=== PATIENT | male | born 1940 | race Caucasian/White ===

== ENCOUNTER 2018-05-30 18:35 | Observation (INO) ==
[2018-05-30 19:34] LABS: Basophils # 0.1 10*3/uL (0.0-0.2); Basophils % 2.3 % (0.0-0.8); Eosinophils # 0.1 10*3/uL (0.0-0.87); Eosinophils % 4.3 % (0.00-10.9); Hematocrit 35.8 VOL% (42.0-52.0); Immature Granulocytes % 0.3 %; Immature Granulocytes Absolute 0.01 #; Lymphocytes # 0.7 10*3/uL (1.4-4.0); Lymphocytes % 24.4 % (21.2-54.2); Mean Corpuscular HGB Conc 30.7 GM/DL (32-36); Mean Corpuscular Hemoglobin 28 PG (27-34); Mean Corpuscular Volume 90.9 FL (87-102); Mean Platelet Volume 11.4 FL (9.6-12.0); Monocytes # 0.3 10*3/uL (0.11-0.8); Monocytes % 11.2 % (1.7-12.7); Neutrophils # 1.7 10*3/uL (1.4-7.4); Neutrophils % 57.5 % (38.7-73.9); Platelet Count 71 T/CUMM (130-400); Red Blood Count 3.94 MC/CUMM (3.8-5.5); Red Cell Distribution Width 17.9 % (9.3-17.3)
[2018-05-30 20:08] LABS: Bilirubin,Total 1.2 MG/DL (0.2-1.0); Calcium 9.1 MG/DL (8.5-10.1); Osmolality,Calculated 288.3 MOS/KG (273-304); Potassium 4.7 MMOL/L (3.5-5.1); Total Protein 6.8 G/DL (6.4-8.3)
[2018-05-30 20:10] LABS: Giant Platelets Few; Platelet Estimate Decreased
[2018-05-30] MEDS ORDERED: ONDANSETRON 4 MG/2 ML VIAL IV PRN (22:21)
[2018-05-30] MEDS ORDERED: ENOXAPARIN 40 MG/0.4 ML SYRINGE SUBCUT SCH (22:30)
[2018-05-31] MEDS ORDERED: NIACIN 500 MG TABLET PO SCH (02:05)
[2018-05-31] MEDS ORDERED: SIMVASTATIN 80 MG TABLET PO SCH (02:05)
[2018-05-31 07:24] LABS: Osmolality,Calculated 285.4 MOS/KG (273-304); Potassium 4.2 MMOL/L (3.5-5.1)
[2018-05-31] MEDS ORDERED: CARVEDILOL 12.5 MG TABLET PO SCH (08:00)
[2018-05-31] MEDS ORDERED: LOSARTAN 50 MG TABLET PO SCH (09:00)
[2018-05-31] MEDS ORDERED: PANTOPRAZOLE 40 MG TABLET PO SCH (09:00)
[2018-05-31] MEDS ORDERED: FUROSEMIDE 40 MG TABLET PO SCH (09:00)
[2018-05-31] MEDS ORDERED: ESCITALOPRAM 10 MG TABLET PO SCH (09:00)
[2018-05-31] MEDS ORDERED: ASPIRIN EC 81 MG TABLET PO SCH (09:00)
[2018-05-31] MEDS ORDERED: ALLOPURINOL 300 MG TABLET PO SCH (09:00)
[2018-05-31] MEDS ORDERED: SODIUM CHLORIDE 0.9% 500 ML IV ONE (14:02)
[2018-05-31 14:28] LABS: Risk Ratio 2.16; VLDL CHOLESTEROL 12.4 MG/DL
[2018-05-31 15:51] VITALS: BP 135/71
== END 2018-05-31 18:43 | disposition home or self-care (01) ==
LOC: N.EDINP 18:35 → N.ED 18:35 → N.4E 05-31 00:12
PROVIDERS: ADMIT Internal Medicine; ATTEND Internal Medicine

== ENCOUNTER 2019-09-14 04:10 | Inpatient (IN) ==
[2019-09-14] MEDS ORDERED: SODIUM CHLORIDE 0.9% 1,000 ML IV STA (04:30)
[2019-09-14] MEDS ORDERED: ACETAMINOPHEN 500 MG TABLET PO STA (04:39)
[2019-09-14 05:12] LABS: Basophils # 0.1 10*3/uL (0.0-0.2); Basophils % 0.9 % (0.0-0.8); Eosinophils # 0.1 10*3/uL (0.0-0.87); Hematocrit 43.8 VOL% (42.0-52.0); Hemoglobin 14.2 GM/DL (14.0-18.0); Immature Granulocytes % 0.6 %; Immature Granulocytes Absolute 0.07 #; Lymphocytes # 0.9 10*3/uL (1.4-4.0); Lymphocytes % 7.7 % (21.2-54.2); Mean Corpuscular HGB Conc 32.4 GM/DL (32-36); Mean Corpuscular Volume 97.1 FL (87-102); Mean Platelet Volume 10.4 FL (9.6-12.0); Neutrophils % 78.8 % (38.7-73.9); Platelet Count 110 T/CUMM (130-400); Red Blood Count 4.51 MC/CUMM (3.8-5.5); Red Cell Distribution Width 15.5 % (9.3-17.3); White Blood Count 11.6 T/CUMM (4-12)
[2019-09-14 05:24] LABS: Alanine Aminotransferase 25 U/L (16-61); Albumin 3.6 G/DL (3.4-5.0); Alkaline Phosphatase 82 U/L (45-117); Aspartate Amino Transferase 38 U/L (0-37); Blood Urea Nitrogen 61 MG/DL (7-18); Estimated Glom Filtration Rate 23 ML/MIN; Glucose 98 MG/DL (74-106); Osmolality,Calculated 278.7 MOS/KG (273-304); Total Protein 6.9 G/DL (6.4-8.3)
[2019-09-14] MEDS ORDERED: NICOTINE 21 MG/24 HR PATCH TRANSDERM PRN (05:56)
[2019-09-14] MEDS ORDERED: DEXTROSE 50% 25 GM/50 ML VIAL IV PRN (05:56)
[2019-09-14] MEDS ORDERED: ACETAMINOPHEN 325 MG TABLET PO PRN (05:56)
[2019-09-14] MEDS ORDERED: GLUCAGON 1 MG VIAL IM PRN (05:56)
[2019-09-14] MEDS ORDERED: diphenhydrAMINE CAP 25 MG CAPSULE PO PRN (05:56)
[2019-09-14] MEDS ORDERED: DOCUSATE SODIUM 100 MG CAPSULE PO PRN (05:56)
[2019-09-14] MEDS ORDERED: ONDANSETRON 4 MG/2 ML VIAL IV PRN (05:56)
[2019-09-14] MEDS ORDERED: hydrALAZINE 20 MG/1 ML VIAL IV PRN (05:56)
[2019-09-14] MEDS ORDERED: guaiFENesin/DM ER 600-30 MG TABLET PO PRN (05:56)
[2019-09-14 06:00] LABS: Amorphous Crystals,Urine Occasional /HPF (Few); Apearance,Urine Slightly Hazy (Clear); Bacteria,Urine Occasional /HPF (Few); Bilirubin,Urine Negative (Negative); Blood, Urine Negative (Negative); Glucose,Urine (UA) Negative (Negative); Hyaline Casts,Urine 6 /LPF (0-3); Ketones,Urine Negative (Negative); Mucus,Urine Moderate /LPF (Occasional); Nitrite,Urine Negative (Negative); Protein,Urine 100 MG/DL; RBC,Urine 1 /HPF (0-4); Squamous Epithelial Cell,Urine Occasional /HPF (0-10); Urine Color Yellow (Yellow); Urine Specific Gravity 1.018 (1.001-1.035); Urine Urobilinogen < 2.0 EU/DL (0.2-1.0); WBC,Urine <1 /HPF (0-6)
[2019-09-14] MEDS ORDERED: SODIUM CHLORIDE 0.9% 1,000 ML IV SCH (06:00)
[2019-09-14] MEDS ORDERED: AZITHROMYCIN INJ 500 MG in SODIUM CHLORIDE 0.9% 250 ML IV SCH (06:00)
[2019-09-14] MEDS ORDERED: SODIUM CHLORIDE 0.9% 1,000 ML IV ONE (06:14)
[2019-09-14] MEDS: cefTRIAXone 1,000 MG in SYRINGE 1 EACH IV SCH (07:44)
[2019-09-14] MEDS ORDERED: SODIUM CHLORIDE 0.9% 100 ML IV ONE (07:46)
[2019-09-14] MEDS: AZITHROMYCIN 250 MG TABLET PO SCH (09:36)
[2019-09-14] MEDS: PANTOPRAZOLE 40 MG TABLET PO SCH (09:36)
[2019-09-14] MEDS: HEPARIN 5,000 UNIT/1 ML VIAL SUBCUT SCH ×2 (10:15→22:07)
[2019-09-14] MEDS: ZALEPLON 5 MG CAPSULE PO PRN (22:10)
[2019-09-15 06:17] LABS: Calcium 8.4 MG/DL (8.5-10.1); Osmolality,Calculated 288.8 MOS/KG (273-304)
[2019-09-15 06:21] LABS: Calcium 8.5 MG/DL (8.5-10.1); Osmolality,Calculated 293.4 MOS/KG (273-304); Total Protein 5.7 G/DL (6.4-8.3)
[2019-09-15 07:46] LABS: Basophils # 0.1 10*3/uL (0.0-0.2); Basophils % 1.7 % (0.0-0.8); Eosinophils # 0.2 10*3/uL (0.0-0.87); Hematocrit 35.9 VOL% (42.0-52.0); Immature Granulocytes % 0.5 %; Immature Granulocytes Absolute 0.02 #; Lymphocytes % 24.6 % (21.2-54.2); Mean Corpuscular HGB Conc 31.8 GM/DL (32-36); Mean Platelet Volume 9.7 FL (9.6-12.0); Monocytes % 13.7 % (1.7-12.7); Neutrophils % 55.5 % (38.7-73.9); Red Cell Distribution Width 15.9 % (9.3-17.3)
[2019-09-15 07:47] LABS: Hemoglobin 11.4 GM/DL (14.0-18.0); Platelet Count 59 T/CUMM (130-400); Red Blood Count 3.59 MC/CUMM (3.8-5.5)
[2019-09-15] MEDS: cefTRIAXone 1,000 MG in SYRINGE 1 EACH IV SCH (07:48)
[2019-09-15 08:06] LABS: Platelet Estimate Decreased
[2019-09-15 08:07] LABS: Anisocytosis 1+
[2019-09-15 08:08] LABS: Macrocytosis 1+; Poikilocytosis Slight
[2019-09-15] MEDS: PANTOPRAZOLE 40 MG TABLET PO SCH (08:37)
[2019-09-15] MEDS: HEPARIN 5,000 UNIT/1 ML VIAL SUBCUT SCH ×2 (08:37→22:12)
[2019-09-15] MEDS: AZITHROMYCIN 250 MG TABLET PO SCH (08:37)
[2019-09-15] MEDS ORDERED: FUROSEMIDE 40 MG TABLET PO SCH (11:30)
[2019-09-15] MEDS: ZALEPLON 5 MG CAPSULE PO PRN (22:18)
[2019-09-16 06:10] LABS: Basophils # 0.1 10*3/uL (0.0-0.2); Basophils % 1.5 % (0.0-0.8); Eosinophils # 0.3 10*3/uL (0.0-0.87); Eosinophils % 5.5 % (0.00-10.9); Hematocrit 38.9 VOL% (42.0-52.0); Hemoglobin 12.8 GM/DL (14.0-18.0); Immature Granulocytes % 0.4 %; Immature Granulocytes Absolute 0.02 #; Lymphocytes # 0.7 10*3/uL (1.4-4.0); Mean Corpuscular HGB Conc 32.9 GM/DL (32-36); Mean Corpuscular Volume 96.8 FL (87-102); Mean Platelet Volume 10.1 FL (9.6-12.0); Monocytes % 12.1 % (1.7-12.7); Neutrophils % 64.5 % (38.7-73.9); Red Blood Count 4.02 MC/CUMM (3.8-5.5); Red Cell Distribution Width 15.7 % (9.3-17.3); White Blood Count 4.6 T/CUMM (4-12)
[2019-09-16 06:12] LABS: Platelet Count 71 T/CUMM (130-400)
[2019-09-16 06:56] LABS: Calcium 8.7 MG/DL (8.5-10.1); Ferritin 121.1 ng/ml (26-388); Osmolality,Calculated 282.1 MOS/KG (273-304)
[2019-09-16 07:10] LABS: Hypochromasia Slight; Platelet Estimate Decreased
[2019-09-16] MEDS: AZITHROMYCIN 250 MG TABLET PO SCH (08:57)
[2019-09-16] MEDS: cefTRIAXone 1,000 MG in SYRINGE 1 EACH IV SCH (08:57)
[2019-09-16] MEDS: HEPARIN 5,000 UNIT/1 ML VIAL SUBCUT SCH ×2 (08:58→21:16)
[2019-09-16] MEDS: FUROSEMIDE 40 MG TABLET PO SCH ×2 (08:58→15:37)
[2019-09-16] MEDS: PANTOPRAZOLE 40 MG TABLET PO SCH (08:58)
[2019-09-16] MEDS ORDERED: FUROSEMIDE 20 MG/2 ML VIAL IV ONE (12:08)
[2019-09-17 06:17] LABS: Basophils # 0.1 10*3/uL (0.0-0.2); Basophils % 1.8 % (0.0-0.8); Eosinophils # 0.4 10*3/uL (0.0-0.87); Eosinophils % 11.1 % (0.00-10.9); Hematocrit 36.7 VOL% (42.0-52.0); Hemoglobin 12.1 GM/DL (14.0-18.0); Immature Granulocytes % 0.3 %; Immature Granulocytes Absolute 0.01 #; Lymphocytes % 28.8 % (21.2-54.2); Mean Corpuscular Volume 96.3 FL (87-102); Mean Platelet Volume 9.2 FL (9.6-12.0); Monocytes % 14.4 % (1.7-12.7); Neutrophils % 43.6 % (38.7-73.9); Red Blood Count 3.81 MC/CUMM (3.8-5.5); Red Cell Distribution Width 15.5 % (9.3-17.3); White Blood Count 3.3 T/CUMM (4-12)
[2019-09-17 06:28] LABS: Platelet Count 67 T/CUMM (130-400)
[2019-09-17 06:40] LABS: Eosinophils 12 % (0-10); Hypochromasia 1+; Lymphocytes 27 % (20-55); Macrocytosis 1+; Platelet Estimate Decreased; Segmented Neutrophils 45 % (50-85); Total Cells Counted 100
[2019-09-17 06:59] LABS: Calcium 8.5 MG/DL (8.5-10.1); Osmolality,Calculated 289.4 MOS/KG (273-304)
[2019-09-17] MEDS: PANTOPRAZOLE 40 MG TABLET PO SCH (08:09)
[2019-09-17] MEDS: HEPARIN 5,000 UNIT/1 ML VIAL SUBCUT SCH ×2 (08:10→20:07)
[2019-09-17] MEDS: cefTRIAXone 1,000 MG in SYRINGE 1 EACH IV SCH (08:10)
[2019-09-17] MEDS: FUROSEMIDE 40 MG TABLET PO SCH ×2 (08:10→16:32)
[2019-09-17] MEDS: AZITHROMYCIN 250 MG TABLET PO SCH (08:10)
[2019-09-18] MEDS: AZITHROMYCIN 250 MG TABLET PO SCH (08:19)
[2019-09-18] MEDS: cefTRIAXone 1,000 MG in SYRINGE 1 EACH IV SCH (08:19)
[2019-09-18] MEDS: FUROSEMIDE 40 MG TABLET PO SCH (08:19)
[2019-09-18] MEDS: HEPARIN 5,000 UNIT/1 ML VIAL SUBCUT SCH (08:19)
[2019-09-18] MEDS: PANTOPRAZOLE 40 MG TABLET PO SCH (08:19)
[2019-09-18] MEDS ORDERED: CEFUROXIME 500 MG TABLET PO SCH (09:00)
[2019-09-18 11:18] VITALS: BP 137/51
== END 2019-09-18 13:01 | disposition home or self-care (01) | DRG 871 ==
LOC: EDUNIT# → EDBD → SUATTDRO → N.ED 04:10 → SUATTDRO 05:56 → N.EDINP 05:56 → N.3E 07:53 → N.2E 09-16 01:56
PROVIDERS: ADMIT Internal Medicine; ATTEND Hospitalist

== ENCOUNTER 2020-02-17 15:19 | Inpatient (IN) ==
[2020-02-17] MEDS ORDERED: MAGNESIUM SULF RIDER 2 GM in PREMIX 1 EACH IV PRN (15:51)
[2020-02-17] MEDS ORDERED: ZALEPLON 5 MG CAPSULE PO PRN (15:51)
[2020-02-17] MEDS ORDERED: MAGNESIUM SULF RIDER 4 GM in PREMIX 1 EACH IV PRN (15:51)
[2020-02-17] MEDS ORDERED: ONDANSETRON 4 MG/2 ML VIAL IV PRN (15:51)
[2020-02-17] MEDS ORDERED: POTASSIUM CHLORIDE 20 MEQ TABLET PO PRN (15:51)
[2020-02-17] MEDS ORDERED: BISACODYL 5 MG TABLET PO PRN (15:51)
[2020-02-17] MEDS ORDERED: ACETAMINOPHEN 325 MG TABLET PO PRN (15:51)
[2020-02-17] MEDS ORDERED: ALUMINUM/MAGNES/SIMETH MAX STR 30 ML UDCUP PO PRN (15:51)
[2020-02-17] MEDS ORDERED: DOBUTamine 500 MG/250 ML PREMIX IV SCH (16:00)
[2020-02-17] MEDS ORDERED: NITROGLYCERIN SL 0.4 MG TABLET SL PRN (16:02)
[2020-02-17] MEDS: ENOXAPARIN 40 MG/0.4 ML SYRINGE SUBCUT SCH (17:42)
[2020-02-17 18:32] LABS: Basophils # 0.1 10*3/uL (0.0-0.2); Basophils % 2.5 % (0.0-0.8); Eosinophils # 0.3 10*3/uL (0.0-0.87); Eosinophils % 8.9 % (0.00-10.9); Hemoglobin 12.1 GM/DL (14.0-18.0); Immature Granulocytes % 0.3 %; Immature Granulocytes Absolute 0.01 #; Lymphocytes # 0.9 10*3/uL (1.4-4.0); Mean Corpuscular HGB Conc 32.7 GM/DL (32-36); Mean Corpuscular Volume 98.4 FL (87-102); Mean Platelet Volume 10.4 FL (9.6-12.0); Monocytes % 14.7 % (1.7-12.7); Neutrophils % 48.6 % (38.7-73.9); Platelet Count 114 T/CUMM (130-400); Red Blood Count 3.76 MC/CUMM (3.8-5.5); Red Cell Distribution Width 16.9 % (9.3-17.3); White Blood Count 3.6 T/CUMM (4-12)
[2020-02-17 18:49] LABS: Albumin 3.5 G/DL (3.4-5.0); Calcium 8.6 MG/DL (8.5-10.1); Total Protein 7.3 G/DL (6.4-8.3)
[2020-02-17 20:52] LABS: Troponin I 0.023 NG/ML (0.00-0.045)
[2020-02-17] MEDS ORDERED: NIACIN ER 500 MG TABLET PO SCH (21:00)
[2020-02-17] MEDS: carvediloL 12.5 MG TABLET PO SCH (21:26)
[2020-02-17] MEDS: FLECAINIDE 50 MG TABLET PO SCH (21:26)
[2020-02-17 22:41] LABS: Bilirubin,Urine Negative (Negative); Blood, Urine Negative (Negative); Glucose,Urine (UA) Negative (Negative); Hyaline Casts,Urine 5 /LPF (0-3); Ketones,Urine Negative (Negative); Mucus,Urine Occasional /LPF (Occasional); Nitrite,Urine Negative (Negative); Protein,Urine 30 MG/DL; RBC,Urine <1 /HPF (0-4); Urine Appearance CLEAR (Clear); Urine Color Yellow (Yellow); Urine Urobilinogen < 2.0 EU/DL (0.2-1.0); WBC,Urine <1 /HPF (0-6)
[2020-02-18 00:01] LABS: Troponin I 0.025 NG/ML (0.00-0.045)
[2020-02-18 05:36] LABS: Basophils # 0.1 10*3/uL (0.0-0.2); Basophils % 2.9 % (0.0-0.8); Eosinophils # 0.3 10*3/uL (0.0-0.87); Eosinophils % 9.9 % (0.00-10.9); Hematocrit 32.8 VOL% (42.0-52.0); Immature Granulocytes % 0.4 %; Immature Granulocytes Absolute 0.01 #; Lymphocytes # 0.8 10*3/uL (1.4-4.0); Lymphocytes % 30.4 % (21.2-54.2); Mean Corpuscular HGB Conc 33.5 GM/DL (32-36); Mean Corpuscular Volume 97.6 FL (87-102); Mean Platelet Volume 10.5 FL (9.6-12.0); Monocytes % 15.4 % (1.7-12.7); Red Blood Count 3.36 MC/CUMM (3.8-5.5); Red Cell Distribution Width 16.8 % (9.3-17.3); White Blood Count 2.7 T/CUMM (4-12)
[2020-02-18 05:37] LABS: Platelet Count 98 T/CUMM (130-400)
[2020-02-18 05:56] LABS: Eosinophils 16 % (0-10); Hypochromasia 1+; Lymphocytes 35 % (20-55); Ovalocytes Slight; Platelet Estimate Decreased; Segmented Neutrophils 38 % (50-85); Total Cells Counted 100
[2020-02-18 05:59] LABS: Calcium 8.7 MG/DL (8.5-10.1); Osmolality,Calculated 294.7 MOS/KG (273-304); Risk Ratio 1.89; Thyroid Stimulating Hormone 3.95 uIU/ml (0.358-3.74)
[2020-02-18 07:24] LABS: Free T4 (Free Thyroxine) 1.13 NG/DL (0.76-1.46); Thyroid Stimulating Hormone 3.97 uIU/ml (0.358-3.74)
[2020-02-18] MEDS ORDERED: FUROSEMIDE 20 MG TABLET PO SCH (08:00)
[2020-02-18] MEDS: ASPIRIN EC 81 MG TABLET PO SCH (09:04)
[2020-02-18] MEDS: SIMVASTATIN 80 MG TABLET PO SCH (09:04)
[2020-02-18] MEDS: carvediloL 12.5 MG TABLET PO SCH ×2 (09:04→21:40)
[2020-02-18] MEDS: FUROSEMIDE 40 MG/4 ML VIAL IV SCH ×2 (09:04→17:16)
[2020-02-18] MEDS: FLECAINIDE 50 MG TABLET PO SCH ×2 (09:04→21:40)
[2020-02-18] MEDS: PANTOPRAZOLE 40 MG TABLET PO SCH (09:04)
[2020-02-18] MEDS: metOLazone 2.5 MG TABLET PO SCH (09:04)
[2020-02-18] MEDS: DOBUTamine 500 MG/250 ML PREMIX IV SCH (10:00)
[2020-02-18] MEDS: ENOXAPARIN 40 MG/0.4 ML SYRINGE SUBCUT SCH (17:15)
[2020-02-19 06:31] LABS: Basophils # 0.1 10*3/uL (0.0-0.2); Basophils % 3.1 % (0.0-0.8); Eosinophils # 0.3 10*3/uL (0.0-0.87); Eosinophils % 7.8 % (0.00-10.9); Hematocrit 34.4 VOL% (42.0-52.0); Hemoglobin 11.5 GM/DL (14.0-18.0); Immature Granulocytes % 0.3 %; Immature Granulocytes Absolute 0.01 #; Lymphocytes % 31.9 % (21.2-54.2); Mean Corpuscular HGB Conc 33.4 GM/DL (32-36); Mean Corpuscular Volume 95.8 FL (87-102); Mean Platelet Volume 9.8 FL (9.6-12.0); Monocytes % 15.9 % (1.7-12.7); Platelet Count 103 T/CUMM (130-400); Red Blood Count 3.59 MC/CUMM (3.8-5.5); Red Cell Distribution Width 16.8 % (9.3-17.3); White Blood Count 3.2 T/CUMM (4-12)
[2020-02-19 06:42] LABS: Calcium 8.8 MG/DL (8.5-10.1); Osmolality,Calculated 289.1 MOS/KG (273-304)
[2020-02-19 07:13] LABS: Eosinophils 7 % (0-10); Hypochromasia 1+; Lymphocytes 31 % (20-55); Ovalocytes Slight; Platelet Estimate Decreased; Segmented Neutrophils 47 % (50-85); Total Cells Counted 100
[2020-02-19] MEDS: FLECAINIDE 50 MG TABLET PO SCH ×2 (08:09→21:44)
[2020-02-19] MEDS: PANTOPRAZOLE 40 MG TABLET PO SCH (08:09)
[2020-02-19] MEDS: FUROSEMIDE 40 MG/4 ML VIAL IV SCH ×2 (08:09→16:27)
[2020-02-19] MEDS: carvediloL 12.5 MG TABLET PO SCH ×2 (08:10→21:44)
[2020-02-19] MEDS: SIMVASTATIN 80 MG TABLET PO SCH (08:10)
[2020-02-19] MEDS: ISOSORBIDE MONONITRATE 30 MG TABLET PO SCH (08:10)
[2020-02-19] MEDS: ASPIRIN EC 81 MG TABLET PO SCH (08:10)
[2020-02-19] MEDS: metOLazone 2.5 MG TABLET PO SCH (08:10)
[2020-02-19] MEDS ORDERED: DIGOXIN 0.125 MG TABLET PO SCH (09:00)
[2020-02-19] MEDS: ENOXAPARIN 40 MG/0.4 ML SYRINGE SUBCUT SCH (16:27)
[2020-02-19] MEDS: DOBUTamine 500 MG/250 ML PREMIX IV SCH (18:34)
[2020-02-20 05:48] LABS: Basophils # 0.1 10*3/uL (0.0-0.2); Basophils % 2.8 % (0.0-0.8); Eosinophils # 0.3 10*3/uL (0.0-0.87); Eosinophils % 8.9 % (0.00-10.9); Hematocrit 32.2 VOL% (42.0-52.0); Hemoglobin 10.9 GM/DL (14.0-18.0); Immature Granulocytes % 0.3 %; Immature Granulocytes Absolute 0.01 #; Mean Corpuscular HGB Conc 33.9 GM/DL (32-36); Mean Corpuscular Volume 95.8 FL (87-102); Mean Platelet Volume 10.2 FL (9.6-12.0); Monocytes % 18.7 % (1.7-12.7); Neutrophils % 37.3 % (38.7-73.9); Platelet Count 105 T/CUMM (130-400); Red Blood Count 3.36 MC/CUMM (3.8-5.5); Red Cell Distribution Width 16.7 % (9.3-17.3); White Blood Count 3.2 T/CUMM (4-12)
[2020-02-20 06:17] LABS: Eosinophils 11 % (0-10); Hypochromasia 1+; Lymphocytes 31 % (20-55); Microcytosis 1+; Platelet Estimate Decreased; Segmented Neutrophils 45 % (50-85); Total Cells Counted 100
[2020-02-20 06:18] LABS: Osmolality,Calculated 288.1 MOS/KG (273-304)
[2020-02-20] MEDS ORDERED: FUROSEMIDE 40 MG TABLET PO SCH (08:00)
[2020-02-20] MEDS: ASPIRIN EC 81 MG TABLET PO SCH (08:54)
[2020-02-20] MEDS: ISOSORBIDE MONONITRATE 30 MG TABLET PO SCH (08:54)
[2020-02-20] MEDS: SIMVASTATIN 80 MG TABLET PO SCH (08:54)
[2020-02-20] MEDS: FLECAINIDE 50 MG TABLET PO SCH (08:54)
[2020-02-20] MEDS: PANTOPRAZOLE 40 MG TABLET PO SCH (08:54)
[2020-02-20] MEDS: carvediloL 12.5 MG TABLET PO SCH (08:55)
[2020-02-20] MEDS ORDERED: metOLazone 5 MG TABLET PO SCH (09:00)
[2020-02-20] MEDS ORDERED: SPIRONOLACTONE 25 MG TABLET PO SCH (09:00)
[2020-02-20] MEDS ORDERED: SACUBITRIL/VALSARTAN 49-51 MG TABLET PO SCH (09:00)
[2020-02-20 12:52] VITALS: BP 129/61
== END 2020-02-20 13:41 | disposition home or self-care (01) | DRG 291 ==
LOC: N.TELES 16:47
PROVIDERS: ADMIT Internal Medicine Cardiovascular Disease; ATTEND Internal Medicine Cardiovascular Disease